=== PATIENT | female | born 1985 | race Caucasian/White ===

== ENCOUNTER 2018-03-09 18:50 | Inpatient (IN) | payer OTHER ==
[~2018-03-09] VITALS: Ht 163.8 cm; Wt 46.7 kg
--- NOTE | 2018-03-09 23:30 | NUR ---
Pre-admission Note Assessment done in the intake office. Px appears anxious and depressed. Px is disheveled. Px is A&Ox4. Px is ambulatory with steady gait. Speech is audible and clear. She has good eye contact with emotional volatility. VS are as follows BP= 115/68, NE= 83, RR= 17, T=96.7, O2sat= 98% on RA. Px is here for medically supervised withdrawal from ETOH. Px has NKA. She denies any withdrawal-induced seizure. Px is not taking any home medications. Admission process will continue in the unit.
[2018-03-10] VITALS: BP 119/72
[2018-03-10] MEDS ORDERED: ONDANSETRON 4 MG/2 ML VIAL IM PRN
[2018-03-10] MEDS ORDERED: ACETAMINOPHEN 325 MG TABLET PO PRN
[2018-03-10] MEDS ORDERED: THIAMINE HCL 200 MG/2 ML VIAL IM ONE
[2018-03-10] MEDS ORDERED: IBUPROFEN 600 MG TABLET PO PRN
[2018-03-10] MEDS ORDERED: MAG HYDROX/AL HYDROX/SIMETH 30 ML LIQUID UDC PO PRN
[2018-03-10] MEDS ORDERED: LORAZEPAM 2 MG/1 ML VIAL IM PRN
[2018-03-10] MEDS ORDERED: MIRALAX 17 GM POWD.PACK PO PRN
[2018-03-10] MEDS ORDERED: LORAZEPAM 1 MG TABLET PO PRN ×2
[2018-03-10] MEDS ORDERED: ONDANSETRON ODT 4 MG TAB.RAPDIS SL PRN
[2018-03-10] MEDS ORDERED: DICYCLOMINE HCL 20 MG TABLET PO PRN
[2018-03-10] MEDS ORDERED: LOPERAMIDE HCL 2 MG CAPSULE PO PRN ×2
[2018-03-10] MEDS ORDERED: MAGNESIUM HYDROXIDE 30 ML LIQUID UDC PO PRN
[2018-03-10] MEDS ORDERED: CLONIDINE HCL 0.1 MG TABLET PO PRN
--- NOTE | 2018-03-10 | NUR ---
CIWA deferred CIWA deferred due to the px is currently intoxicated.
--- NOTE | 2018-03-10 00:15 | NUR ---
Admission Note Px is 32 y/o female being admitted for medically supervised withdrawal from ETOH. Px is intoxicated and is not currently experiencing withdrawals. During assessment, px has smell of alcohol in her breath. Px is disheveled. Px appears anxious and depressed with emotional volatility. She is A&Ox4 with clear and audible speech. Px has good eye contact. Px states that withdrawal from ETOH included shakiness, anxiety, depression, N/V, irritability, and restlessness. Px denies any withdrawal-induced seizure. Px states current substance use as follows: 1. ETOH- Px drinks Tequila/Vodka or whatever she finds with 90 to 100 proof. 400 ml daily for 16 mos straight from October 2016. Px started to drink when she was 13 y/o. Her longest sobriety from ETOH is 30 to 35 days, when she was in tx in [place]. Her last intake was 400 ml of vodka on afternoon today, 03/09/2018. 2. Marijuana- Px smokes 1 G of pot daily for 16 mos from October 2016. Px started to smoke when she was 13 y/o. Her longest sobriety from cannabis is 30 to 35 days, when she was in tx in [place]. Her last smoke was 1 G of pot today, 03/09/2018. She states "I want to be better. I want to find a way to be loved. I've lost myself. I wanted to do a lot of things but I can't do them right now." Silvio states that she will be homeless after this tx because she lost her apartment, she lost her boyfriend and she doesn't want to live with her parents. She states that this will be her 2nd detox. The last tx was in [place] where she stayed for 30 to 35 days in September to October 2016 but relapsed shortly. Silvio has hardtime controlling her impulses to drink even she knows that what she is doing is wrong. She drinks when she is stressed and knows that is not effective but continue to do so. Px stated that she wanted to finish a 60 day rehab program after this detox and doesn't know where to start after that. 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 Px said that she will not go back to her current job due to low salary. Px is supported by her family and her ex-boyfriend. Px added that she was in [facility] 1- 2 weeks ago. She was forced by her dad to say that she was suicidal but she said otherwise. She was cleared by the doctor and was released after 12 hours. VS are as follows BP= 119/72, MT= 91, RR= 17, O2sat= 99% on RA and T= 97.3. No complaints of pain as of the moment. Pulse is regular. Respirations are even and unlabored. Lung orozco are clear. Bowel sounds are active on all quadrants. Skin is intact with scab on dorsal part of left foot. Px follows regular diet at home. NKA. Px stands at 5'4.5" and weighs 103 lbs on standing scale. Px smokes an average of 7 sticks of cigarettes daily. Px PMH includes non-active asthma, fx of 5th metatarsal bone in 2016, anxiety and depression but were not diagnosed. Silvio was educated about the plan of care including detox, group and individual therapy and D/C planning. Px was encouraged to be open and honest for a successful recovery.
[2018-03-10 00:23] LABS: BASOPHILS % (AUTO) 0.4 % (0.0-2.0); EOSINOPHILS # (AUTO) 0.1 K/uL (0.0-0.7); EOSINOPHILS % (AUTO) 1.3 % (0.0-7.0); HEMATOCRIT 38.4 % (31.2-41.9); HEMOGLOBIN 13.2 g/dL (10.9-14.3); LYMPHOCYTES # (AUTO) 2.3 K/uL (20.0-40.0); LYMPHOCYTES % (AUTO) 47.7 % (20.5-51.5); MEAN CORPUSCULAR HGB CONC 35 g/dL (32.3-35.6); MEAN CORPUSCULAR VOLUME 101.4 fL (75.5-95.3); MONOCYTES # (AUTO) 0.2 K/uL (2.0-10.0); MONOCYTES % (AUTO) 4.8 % (0.0-11.0); NEUTROPHILS # (AUTO) 2.2 K/uL (1.8-8.9); NEUTROPHILS % (AUTO) 45.8 % (38.5-71.5); PLATELET COUNT (AUTO) 226 K/uL (179-408); RED BLOOD CELL COUNT(AUTO) 3.78 MIL/uL (3.63-4.92); WHITE BLOOD COUNT (AUTO) 4.9 K/uL (3.8-11.8)
[2018-03-10 00:42] LABS: BILIRUBIN,TOTAL 0.4 mg/dL (0.2-1.0); CREATININE 0.9 mg/dL (0.6-1.3); POTASSIUM 3.8 mmol/L (3.5-5.1); TOTAL PROTEIN, SERUM 7.9 g/dL (6.4-8.2)
[2018-03-10 00:42] LABS: *AMPHETAMINE, URINE NEGATIVE (NEGATIVE); *BARBITURATE, URINE NEGATIVE (NEGATIVE); *CANNABINOID, URINE POSITIVE (NEGATIVE); *COCCAINE, URINE NEGATIVE (NEGATIVE); *OPIATE, URINE NEGATIVE (NEGATIVE); *PHENCYCLIDINE SCREEN,URINE NEGATIVE (NEGATIVE)
[2018-03-10 00:48] LABS: THYROID STIMULATING HORMONE 3.798 mIU/mL (0.358-3.740)
[2018-03-10] MEDS: HYDROXYZINE PAMOATE 25 MG CAPSULE PO PRN (01:03)
[2018-03-10 01:26] LABS: *URINE HCG, QUAL NEGATIVE (NEGATIVE)
[2018-03-10 04:00] VITALS: BP 108/65
--- NOTE | 2018-03-10 04:00 | NUR ---
CIWA deferred CIWA deferred due to the px is asleep/intoxicated. To assess if the px is awake per doctors order. We'll continue to monitor.
--- NOTE | 2018-03-10 07:10 | NUR ---
End of Shift Note Px slept after giving the Thiamin injection and Vistaril 25 mg PO. Px oral intake is 300 ml, voided 1x, no BM. At 0630, px is asleep on bed in left side lying position. We'll continue to monitor.
--- NOTE | 2018-03-10 07:15 | NUR ---
Start Of Shift: Patient is a 32 yr old female who was admitted to [facility] last night 03/09/18 for a medically supervised withdrawal from Alcohol ( Vodka / Tequila). She has not been placed on any taper but has PRN medications available. She is awake in bed at this time and voices withdrawal symptoms that include diaphoresis, bilateral hand tremors, increased anxiety and agitation. No PRN medications were required or requested on PM shift, she slept for 5 hours and CIWA not scored due to patients level of intoxication upon admission. Continue to follow plan of care and offer support as needed.
[2018-03-10 08:00] VITALS: BP 93/59
--- NOTE | 2018-03-10 08:30 | NUR ---
CIWA 13 Withdrawal symptoms include bilateral hand tremors, decreased appetite, increased anxiety and agitation and diaphoresis.
[2018-03-10] MEDS: THIAMINE HCL 100 MG TABLET PO SCH (08:40)
[2018-03-10] MEDS: MULTIVITAMINS,THERAPEUTIC TABLET PO SCH (08:40)
[2018-03-10] MEDS: FOLIC ACID 1 MG TABLET PO SCH (08:40)
--- NOTE | 2018-03-10 08:40 | NUR ---
PRN Ativan Ativan 1MG Po given for CIWA 13 S/S of withdrawal : Bilateral hand tremors, increased anxiety and agitation, restlessness, diaphoresis and decreased appetite.
--- NOTE | 2018-03-10 08:45 | NUR ---
TB Placed Left Forearm
[2018-03-10] MEDS ORDERED: TUBERCULIN,PURIF.PROT.DERIV. 5 TU/0.1 ML TEST ID ONE (09:00)
--- NOTE | 2018-03-10 09:40 | NUR ---
PRN Ativan Reassess CIWA now 11 Withdrawal symptoms alleviated with Ativan 1MG PO, patient states she feels less anxious and just want to sleep for a bit now, will continue to assess and monitor.
[2018-03-10 12:00] VITALS: BP 103/64
--- NOTE | 2018-03-10 12:20 | NUR ---
CARLITOS 13 Withdrawal symptoms include bilateral hand tremors, increased anxiety, lethargy and decreased appetite. MD starting Ativan taper at 1pm today.
[2018-03-10] MEDS ORDERED: 5 DAY TAPER OF LORAZEPAM -SERENITY PROTOCOL PO PRN ×2 (13:30→14:30)
[2018-03-10] MEDS ORDERED: LORAZEPAM 1 MG TABLET PO SCH (13:45)
--- NOTE | 2018-03-10 15:59 | NUR ---
CIWA 13 Withdrawal symptoms present as bilateral hand tremors, diaphoresis, increased anxiety, lethargy and decreased appetite. 3 Day Ativan taper started at 1400.
[2018-03-10 16:00] VITALS: BP 119/82
[2018-03-10] MEDS: ESCITALOPRAM OXALATE 10 MG TABLET PO SCH (16:28)
[2018-03-10] MEDS: LORAZEPAM 1 MG TABLET PO SCH ×2 (16:29→21:27)
--- NOTE | 2018-03-10 19:30 | NUR ---
Start of Shift Patient Received. Per endorsement, patient continues on a 3 day Ativan taper. Patient received PRN Ativan 1mg for increased CIWA with mediation noted to be effective. Patient has been noted to be compliant with group and social activities. Last noted CIWA is 13. Upon rounds patient is noted in bed sleeping. Bedside table is noted with snacks and bottled water, clothes noted to be unfolded on dresser and blankets noted on the floor. Breathing is even and non labored. No restlessness or facial grimacing noted. Will continue plan of care as ordered.
--- NOTE | 2018-03-10 19:51 | NUR ---
End Of Shift: Patient is a 32 yr old female who was admitted to [facility] on 03/09/18 for a medically supervised withdrawal from Alcohol. Today she was started on a 3 day Ativan taper. Her withdrawal symptoms today have presented as Increased anxiety, lethargy, bilateral hand tremors and decreased appetite. She attended PM group and has been interacting with her peers. She had a fluid intake of 1200ML, 3Voids and 0BM. Her last CIWA was 13 @ 1600. Continue to follow MD plan of care and offer support. Endorsed to slot shift manager.
[2018-03-10 20:30] VITALS: BP 103/69
[2018-03-11 00:25] VITALS: BP 98/59
--- NOTE | 2018-03-11 00:25 | NUR ---
CIWA Assessment Patient is noted in bed with eyes closed. Breathing even and non labored. Vitals rendered as per order. CIWA not able to be completed as per order. Will continue to monitor.
[2018-03-11 04:05] LABS: HEPATITIS B SURFACE AG Negative (Negative)
[2018-03-11 04:14] VITALS: BP 101/54
--- NOTE | 2018-03-11 04:16 | NUR ---
CIWA Assessment Patient is noted in bed with eyes closed. Breathing even and non labored. Upon entering room patient is awakened with verbal stimuli. Explained to patient that vitals were ordered. Vitals rendered. patient is noted to easily fall back to sleep. No complications noted. CIWA not able to be completed as per order. Will continue to monitor.
--- NOTE | 2018-03-11 07:30 | NUR ---
Start of Shift Stunt Performer received report on 32 year old female admitted to [facility] on 03/09/18 for medical management of ETOH withdrawals. Pt endorses NKA, full code and regular diet. PMH of non-active Asthma and undiagnosed, with no history of PPH of anxiety and depression, per pt. Pt currently on an Ativan taper with last CIWA 8 per NOC report. No PRN medication administered on NOC, per report. Stunt Performer encounters pt in at nurses station. Pt has a bright affect and congruent mood. Pt does have complaints of anxiety and restlessness and nausea. Pt is A/O x4 and able to make needs known. Pt with a linear thought process and clear speech pattern. Bed in low position with wheels locked and side rails up x2. Will continue to monitor, support and encourage according to plan of care.
[2018-03-11 08:30] VITALS: BP 113/72
--- NOTE | 2018-03-11 08:30 | NUR ---
CIWA 8 Pt is anxious and restless with diaphoresis and tremulous. Pt with complaints of nausea. Will continue to monitor, support and encourage according to plan of care.
[2018-03-11] MEDS ORDERED: LORAZEPAM 1 MG TABLET PO SCH (09:00)
[2018-03-11] MEDS: THIAMINE HCL 100 MG TABLET PO SCH (09:46)
[2018-03-11] MEDS: LORAZEPAM 1 MG TABLET PO SCH ×3 (09:46→22:06)
[2018-03-11] MEDS: ESCITALOPRAM OXALATE 10 MG TABLET PO SCH (09:46)
[2018-03-11] MEDS: MULTIVITAMINS,THERAPEUTIC TABLET PO SCH (09:46)
[2018-03-11] MEDS: FOLIC ACID 1 MG TABLET PO SCH (09:46)
[2018-03-11 12:36] VITALS: BP 127/61
--- NOTE | 2018-03-11 12:38 | NUR ---
CIWA 7 Pt is tremulous, diaphoretic and anxious. Will continue to monitor, support and encourage according to plan of care.
[2018-03-11] MEDS ORDERED: 5 DAY TAPER OF LORAZEPAM -SERENITY PROTOCOL PO PRN (14:22)
[2018-03-11 16:30] VITALS: BP 141/87
--- NOTE | 2018-03-11 16:30 | NUR ---
CIWA 8 Pt is diaphoretic, tremulous, anxious and restless. Will continue to monitor, support and encourage according to plan of care.
--- NOTE | 2018-03-11 19:01 | NUR ---
End of Shift Financial Aid Advisor provided report on 32 year old female admitted to [facility] on 03/09/18 for medical management of ETOH withdrawals. Pt endorses NKA, full code and regular diet. PMH of non-active Asthma and undiagnosed anxiety and depression per pt. No seizure history per pt. Pt currently on an Ativan taper with last CIWA 8, recorded at 1630. No PRN medication administered. Pt has a flat affect and congruent mood. Pt does have complaints of anxiety and restlessness and nausea. Pt is A/O x4 and able to make needs known. Pt has been visible for patio breaks, but is withdrawn and isolative to self. Pt believes she is ready to discharge tomorrow, but has agreed to remain the course of treatment after talking with MD. Pt with a linear thought process and clear speech pattern. Bed in low position with wheels locked and side rails up x2.
--- NOTE | 2018-03-11 19:30 | NUR ---
START OF SHIFT Pt is a 32 y/o female admitted on 03/09/18 for ETOH withdrawal. Pt is on a 3 day Ativan taper that started on 03/10/18, tolerating well. Last CIWA 8 and no PRNs administered during day shift. Upon assessment pt presents with anxiety, restlessness, agitation, flushed skin, intermittent tremors, intermittent sweats, disheveled appearance, unkempt room, difficulty falling asleep, anhedonia, and flat affect. Medications due. Safety measures in place. Call light within reach. Will continue to monitor.
[2018-03-11 20:00] VITALS: BP 122/86
--- NOTE | 2018-03-11 20:00 | NUR ---
CIWA 10 Pt presents with anxiety, restlessness, agitation, flushed skin, intermittent tremors, intermittent sweats, disheveled appearance, unkempt room, difficulty falling asleep, anhedonia, and flat affect. Pt going on frequent smoking breaks.
[2018-03-11] MEDS: diphenhydrAMINE 50 MG CAPSULE PO PRN (22:08)
--- NOTE | 2018-03-11 22:08 | NUR ---
PRN BENADRYL ADMINISTRATION Pt requests sleep aid. Safety measures in place. Call light within reach. Will continue to monitor.
--- NOTE | 2018-03-11 23:08 | NUR ---
PRN BENADRYL REASSESSMENT Pt laying in bed with eyes closed, medication noted effective. Respirations even and unlabored. Safety measures in place. Call light within reach. Will continue to monitor.
--- NOTE | 2018-03-12 | NUR ---
CIWA DEFERRED AND VITALS REFUSED Pt laying in bed with eyes closed, CIWA deferred, to be assessed when pt is awake per orders. Vitals refused. Respirations even and unlabored. Safety measures in place. Call light within reach. Will continue to monitor.
--- NOTE | 2018-03-12 07:17 | NUR ---
END OF SHIFT Pt is a 32 y/o female admitted on 03/09/18 for ETOH withdrawal. Pt is on a 3 day Ativan taper that started on 03/10/18, tolerating well. Pt presented with anxiety, restlessness, agitation, flushed skin, intermittent tremors, intermittent sweats, disheveled appearance, unkempt room, difficulty falling asleep, anhedonia, and flat affect. Scheduled medications and PRN Benadryl administered, effective in S/S of withdrawal as verbalized by pt. Last CIWA 10. Pt slept 7 hours. Intake 2296 ml, void x 5, stool x 1. Safety measures in place. Call light within reach. Pts needs have been met. Endorsed to day shift nurse.
--- NOTE | 2018-03-12 07:30 | NUR ---
Start of Shift Kids Activities Coach received report on 32 year old female admitted to [facility] on 03/09/18 for medical management of ETOH withdrawals. Pt endorses NKA, full code and regular diet. PMH of non-active Asthma and undiagnosed anxiety and depression, per pt. Pt currently on an Ativan taper with last CIWA 10 per NOC report. PRN Benadryl(insomnia) NOC, per report. Kids Activities Coach encounters pt in pts room. Pt is A/O x4 and able to make needs known. Pt with a linear thought process and clear speech pattern. Pt is anxious about being here. Believes herself to be stagnating and wants to get on with her, program and transitional care. Pt has many stressors including no housing or employment when she goes home. Pt ia anxious, restless and has moist skin. Pt is tremulous. Bed in low position with wheels locked and side rails up x2. Will continue to monitor, support and encourage according to plan of care.
--- NOTE | 2018-03-12 08:00 | NUR ---
CIWA 7 Pt is anxious and restless with moist skin and tremors. Will continue to monitor, support and encourage according to plan of care
[2018-03-12 08:43] VITALS: BP 105/69
[2018-03-12] MEDS ORDERED: LORAZEPAM 1 MG TABLET PO SCH ×2 (09:00)
--- NOTE | 2018-03-12 09:00 | NUR ---
Ativan Refusal Pt refuses administration of Ativan. " I have detoxed before and had a bad time, I am not detoxing now." " I have never had a seizure, I do get the shakes a little when I don't drink a couple of days, but I am fine." Pt is anxious, restless and has tremors. MD aware of pt's decision. Will continue to monitor, support and encourage according to plan of care.
[2018-03-12] MEDS: FOLIC ACID 1 MG TABLET PO SCH (09:49)
[2018-03-12] MEDS: MULTIVITAMINS,THERAPEUTIC TABLET PO SCH (09:49)
[2018-03-12] MEDS: ESCITALOPRAM OXALATE 10 MG TABLET PO SCH (09:49)
[2018-03-12] MEDS: THIAMINE HCL 100 MG TABLET PO SCH (09:49)
--- NOTE | 2018-03-12 12:00 | NUR ---
CIWA 7 Pt is anxious and restless with moist skin and elevated HR. Pt is participating in groups and treatment. Will continue to monitor, support and encourage according to plan of care.
[2018-03-12 12:12] VITALS: BP 125/88
--- NOTE | 2018-03-12 13:22 | NUR ---
Client was prompted to attend twice daily group therapy sessions.
--- NOTE | 2018-03-12 16:30 | NUR ---
CIWA 8 Pt with increased anxiety and restlessness. Pt with moist skin. Will continue to monitor, support and encourage according to plan of care.
[2018-03-12 16:54] VITALS: BP 134/94
--- NOTE | 2018-03-12 18:52 | NUR ---
End of Shift Branch Billing Payroll Clerk provided report on 32 year old female admitted to [facility] on 03/09/18 for medical management of ETOH withdrawals. Pt endorses NKA, full code and regular diet. PMH of non-active Asthma and undiagnosed anxiety and depression, per pt. Pt refused Ativan this am and has moved up discharge to tomorrow. Last CIWA 8, recorded at 1630. No PRN medication administered. Pt is A/O x4 and able to make needs known. Pt with a linear thought process and clear speech pattern. Pt is anxious and restless. Flat affect with congruent mood. Cooperative and has insight. Bed in low position with wheels locked and side rails up x2.
--- NOTE | 2018-03-12 19:30 | NUR ---
Start of Shift Patient Received. Per endorsement, patient has completed a modified Ativan taper and is set for discharge tomorrow 03/13/18. Patient has been noted to be compliant with group and social activities. No PRN medications administered. Last noted CIWA 8. Upon rounds, patient is noted in the activities room participating in a group meeting. All needs attended to promptly. Will continue plan of care as ordered.
[2018-03-12 20:14] VITALS: BP 130/87
[2018-03-12] MEDS ORDERED: DIPH50CA37 PO (21:05)
[2018-03-12] MEDS ORDERED: HYDR-3895 PO (21:05)
[2018-03-12] MEDS ORDERED: ESCI10TA PO (21:05)
[2018-03-12] MEDS: diphenhydrAMINE 50 MG CAPSULE PO PRN (23:15)
--- NOTE | 2018-03-12 23:15 | NUR ---
PRN medication administration Patient is noted verbalizing inability of falling asleep. PRN Benadryl administered. Will continue to monitor.
--- NOTE | 2018-03-13 00:15 | NUR ---
PRN Medication Reassessment Patient is noted in bed sleeping. Vitals able to be rendered as per order. CIWA not able to be completed as per order. Will continue to monitor.
[2018-03-13 00:25] VITALS: BP 116/73
[2018-03-13 02:02] VITALS: BP 121/75
[2018-03-13] MEDS: HYDROXYZINE PAMOATE 25 MG CAPSULE PO PRN (02:05)
--- NOTE | 2018-03-13 02:05 | NUR ---
PRN medication Administration Patient is noted awake and verbalizing increased anxiety, agitation, and increased sweats. She states "I have a feeling I'm just anxious because I'm leaving tomorrow." PRN Clonidine and Vistaril administered. Will continue to monitor.
--- NOTE | 2018-03-13 03:00 | NUR ---
PRN Medication Reassessment Patient is noted in bed with her eyes closed. Breathing even and non labored. No restlessness or discomfort noted. PRN Clonidine and Vistaril noted to be effective. Will continue to monitor.
[2018-03-13 04:09] VITALS: BP 111/63
--- NOTE | 2018-03-13 04:09 | NUR ---
CIWA Assessment Patient is noted in bed with eyes closed. Breathing even and non labored. Upon entering room patient is awakened to verbal stimuli. explained to patient that vitals were ordered. Vitals rendered. CIWA not able to be completed as per order. Patient continues to sleep with no complications noted. Will continue to monitor.
--- NOTE | 2018-03-13 07:30 | NUR ---
START OF SHIFT Pt 32 y/o female admitted for etoh withdrawal. Pt received in room awake watching television. Pt alert and oriented to name, place, and time. Perrla. Skin warm and dry to touch. Respirations even and unlabored. No hand tremors noted. Anxious this morning, pt is refusing any prn medications. Appears disheveled. Clothes scattered throughout the room. Encouraged to maintain hygiene. It was reported that pt slept for 7 hours last night. Pt completed a 3 day ativan taper. Last ciwa=5 reported at 1999. Bed on lowest position with side rails x2 up for safety. Call light within reach. Pt is scheduled to be discharged to [facility] today.
--- NOTE | 2018-03-13 07:39 | NUR ---
End of Shift Patient is in bed with his eyes closed. Patient has completed a modified Ativan taper and is set for discharge today 03/13/18. Patient has been noted to be compliant with group and social activities. Patient received PRN Benadryl, Vistaril, and Clonidine with medications noted to be effective. Patient noted to sleep a total of 7 hours. Last noted CIWA 5.All needs attended to promptly. Will endorse to continue plan of care as ordered.
[2018-03-13 08:00] VITALS: BP 100/60
[2018-03-13] MEDS: THIAMINE HCL 100 MG TABLET PO SCH (08:20)
[2018-03-13] MEDS: ESCITALOPRAM OXALATE 10 MG TABLET PO SCH (08:20)
[2018-03-13] MEDS: FOLIC ACID 1 MG TABLET PO SCH (08:20)
[2018-03-13] MEDS: MULTIVITAMINS,THERAPEUTIC TABLET PO SCH (08:20)
[2018-03-13] MEDS ORDERED: LORAZEPAM 1 MG TABLET PO SCH (09:00)
--- NOTE | 2018-03-13 09:42 | NUR ---
DISCHARGE Pt 32 y/o female admitted for etoh withdrawal. Alert and oriented to name, place, and time. Perrla. Skin warm and dry to touch. Respirations even and unlabored. Denies any HI/SI at this time. VS wnl. No home medications, belongings in cabinet and cassette noted. Discharge papers and prescriptions packed in pt bag. Pt excited about being discharged. Pt discharged to [facility] via private transport.
[2018-03-14] MEDS ORDERED: LORAZEPAM 1 MG TABLET PO SCH (09:00)
== END 2018-03-13 09:42 | disposition other institution (70) | DRG 895 ==
LOC: SRC 22:45
PROVIDERS: ADMIT Family Medicine Addiction Medicine; ATTEND Family Medicine Addiction Medicine
PROC: HZ2ZZZZ Detoxification Services for Substance Abuse Treatment (ICD-10-PCS; principal; 2018-03-09)
PROC: HZ41ZZZ Group Counseling for Substance Abuse Treatment, Behavioral (ICD-10-PCS; 2018-03-10)
PROC: HZ31ZZZ Individual Counseling for Substance Abuse Treatment, Behavioral (ICD-10-PCS; 2018-03-12)
DX: F10.230 Alcohol dependence with withdrawal, uncomplicated (principal); F33.1 Major depressive disorder, recurrent, moderate; Y90.9 Presence of alcohol in blood, level not specified; Z81.8 Family history of other mental and behavioral disorders; J45.909 Unspecified asthma, uncomplicated; F12.10 Cannabis abuse, uncomplicated; G47.00 Insomnia, unspecified; F17.210 Nicotine dependence, cigarettes, uncomplicated; F11.10 Opioid abuse, uncomplicated
CPT/HCPCS: 36415; 70030-TC; 80307; 80349; 83690; 83735; 84443; 84703; 85025; 86580; 86592; 86705; 86803; 87340; 87806; A4663; G0480; J3411; Q0163